=== PATIENT | male | born 1950 | race Caucasian/White ===

== ENCOUNTER 2020-05-10 08:47 | Outpatient (CLI) | payer MEDICARE, SELFPAY ==
--- NOTE | 2020-05-10 08:55 | USCV_ITS ---
Vimal Mendoza Age: 69 Gender: M : 1950 Exam Date: 05/10/2020 09:06 Ordering Phys: Beronica Newton NP Technologist: ANA HERNANDEZ [place]am Location[place] [facility] [place] Indication: AAA SCREEN HISTORY: Diameter (cm) AP x Transverse x Length Velocity (cm/s) Waveform Prox Aorta: 2.26 x 3.25 x 27.30 Biphasic Mid Aorta: 2.14 x 2.13 x 36.80 Biphasic Distal Aorta: 1.89 x 2.26 x 36.80 Triphasic Right Iliac Prox: 1.22 x 1.61 x 61.10 Triphasic Left Iliac Prox: 1.32 x 1.39 x 67.30 Triphasic Stent Prox Landing x x Aneurysmal Sac Max x x Lt Lat Sac Dim Rt Lat Sac Dim Stent Dist Landing x x Right Iliac Stent x x Left Iliac Stent x x Right Renal Art Left Renal Art FINDINGS: Comparison: none available. Limited by body habitus. Mild atherosclerosis with no aneurysm identified. CONCLUSIONS No evidence of abdominal aortic or bilateral iliac aneurysm. Dr. Alyson Painter DO (Electronically Signed) Final Date: 10 May 2020 13:47 S
== END 2020-05-10 08:48 | disposition home or self-care (01) ==
LOC: RAD 08:52
PROVIDERS: PCP Nurse Practitioner Family; Visit Provider Nurse Practitioner Family
DX: Z87.891 Personal history of nicotine dependence (principal); I71.4 Abdominal aortic aneurysm, without rupture
CPT/HCPCS: 76706

== ENCOUNTER 2021-05-08 09:37 | Outpatient (CLI) | payer MEDICARE, OTHER, SELFPAY ==
--- NOTE | 2021-05-08 09:48 | XR_ITS ---
WS: [id number] HIP WITH PELVIS RIGHT TECHNIQUE: 3 views of the right hip with pelvis CLINICAL INFORMATION: PAIN IN RIGHT HIP COMPARISON: None. FINDINGS: Prior postoperative changes right SABRINA. No evidence of hardware loosening. Acetabular screw fixation. No evidence of hardware loosening. Hardware appears in good position. XR/XR hip RT 2-3V wo/w pel* [id number] IMPRESSION: Satisfactory right SABRINA. No evidence of loosening. Tonnis classification: grade 0: normal radiographs
== END 2021-05-08 09:38 | disposition home or self-care (01) ==
PROVIDERS: PCP Nurse Practitioner Family; Visit Provider Nurse Practitioner Family
DX: M25.551 Pain in right hip (principal); Z96.641 Presence of right artificial hip joint
CPT/HCPCS: 73502

== ENCOUNTER 2021-06-29 12:05 | Outpatient (CLI) | payer MEDICARE, OTHER, SELFPAY ==
[2021-06-29 12:28] VITALS: BP 138/88; PULSE 79; RESP 24; TEMP 36.8; O2SAT 93
[2021-06-29 12:50] VITALS: BP 118/72; PULSE 76; RESP 20; TEMP 36.9; O2SAT 93
[2021-06-29 13:43] VITALS: BP 124/77; PULSE 74; RESP 24; TEMP 36.8; O2SAT 93
== END 2021-06-29 13:43 | disposition home or self-care (01) ==
LOC: OPS 12:12
PROVIDERS: PCP Nurse Practitioner Family; Visit Provider Nurse Practitioner Family
DX: U07.1 COVID-19 (principal)
CPT/HCPCS: 96365

== ENCOUNTER 2022-04-29 11:22 | Outpatient (CLI) | payer MEDICARE, OTHER, SELFPAY ==
--- NOTE | 2022-04-29 11:33 | CT_ITS ---
WS: [id number] LDCT LUNG CANCER SCREENING TECHNIQUE: Noncontrast CT of the chest with coronal and sagittal reformatted images. CLINICAL INFORMATION: HX OF TOBACCO USE COMPARISON: None. DLP: 51.42 mGy.cm DIvol: Mean CTDIvol: 1.58 (mGy) All CT scans at [facility] use at least one of these dose optimization techniques: automat ed exposure control; mA and/or kV adjustment per patient size (includes targeted exams where dose is matched to clinical indication); or iterative reconstruction. FINDINGS: Subsegmental atelectasis in the lung bases. No suspicious pulmonary parenchymal opacities. Normal jayne iber thoracic aorta. Aortic calcification. Normal GE junction. Adrenal glands are normal. No axillary lymphadenopathy. No mediastinal or hilar l ymphadenopathy. Mild thoracic kyphosis. Hypertrophic changes thoracic spine. Chronic healed bilateral rib fractures with callus formation. CT/CT lung screening [id number] IMPRESSION: LUNG-RADS: 1-Negative FOLLOW UP: 12 Month: Continue annual screening with LDCT
== END 2022-04-29 11:23 | disposition home or self-care (01) ==
LOC: RAD 11:25
PROVIDERS: PCP Nurse Practitioner Family; Visit Provider Nurse Practitioner Family
DX: Z12.2 Encounter for screening for malignant neoplasm of respiratory organs (principal); Z87.891 Personal history of nicotine dependence
CPT/HCPCS: 71271

== ENCOUNTER 2023-04-03 14:10 | Emergency (ER) | payer MEDICARE, SELFPAY ==
[2023-04-03 14:15] VITALS: BMI 42.5
[2023-04-03 14:18] VITALS: BP 116/75; RESP 18; O2SAT 93
--- NOTE | 2023-04-03 14:32 | XR_ITS ---
WS: [id number] Exam: XR ribs RT mn 3V w CXR1V [id number] Date/Time of Exam: 04/03/2023 2:32 PM Reason For Exam: Injury with right rib pain No acute right rib fracture or pneumothorax noted. Several old right rib fractures are noted. Chest x -ray shows a infiltrate in the left lower lobe that may represent pneumonia or chronic change. Normal heart size. The mediastinum is normal in contour for technique. Remaining bony structures are intact . XR/XR ribs RT mn 3V w CXR1V [id number] IMPRESSION: 1. No sign of right rib fracture or pneumothorax. 2. Several old right rib fractures. 3. Infiltrate in the left lower lobe that may represent chronic change or pneum onia.
--- NOTE | 2023-04-03 14:35 | W.ED.TRAUMA ---
HPI - Trauma General: Chief Complaint: Trauma Stated Complaint: rib pain, farming injury Time Seen by Provider: 04/03/23 14:25 History of Present Illness: Patient is a 72-year-old male who comes to the ED right rib pain after injury. Injury occurred just prior to arrival. 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 One of the round hay casey fell back and rolled down bulk loader. Patient states that he dove off to the side to miss the falling hay bale, but it hit back upper left side of patient's body. Denies any headache, loss of consciousness or vomiting after injury. Patient rates his pain currently a 7 out of 10 and it worsens with some movements of his torso and if he takes a deep breath. Denies any other injuries and is only complaining of right rib pain. Associated symptoms: Denies abdominal pain, back pain, chest pain, chills, fever(s), headache(s), nausea or vomiting Review of Systems Const: Denies: fever(s), chills or fatigue Eyes: Denies: change in vision or eye discomfort ENMT: Denies: throat pain, odynophagia, nasal discharge or nasal congestion Card: Denies: chest pain, palpitations, edema, swelling of feet/ankles, dyspnea on exertion or orthopnea Resp: Denies: dyspnea, productive cough or non-productive cough GI: Denies: abdominal pain, nausea, vomiting, diarrhea, constipation or hematochezia : Denies: flank pain, difficulty urinating, dysuria or hematuria Musc: Reports: other (Right rib pain); Denies: neck pain, back pain or extremity swelling Skin/Breast: Denies: rash or new lesions Neuro: Denies: headache(s), numbness in extremities or weakness in extremities PFS ED PFSH: Medical History Enlarged prostate Surgical History History of tonsillectomy History of total hip replacement Hx of shoulder surgery Social History Smoking and tobacco status: former smoker Alcohol intake: current Alcohol intake frequency: other Alcohol type: beer Physical Exam Const: COMMON NORMALS: patient oriented x3 HENMT: COMMON NORMALS: normocephalic HEAD & SCALP: normocephalic MOUTH: Normal oral and palatal mucosa present THROAT: posterior oropharynx normal and uvula midline Eye: COMMON NORMALS: Equal, round and reactive pupils present, EOMs intact bilaterally and conjunctivae normal CONJUNCTIVA: Yes conjunctivae normal PUPIL: Yes Equal, round and reactive pupils present Neck/C-Spine: COMMON NORMALS: supple GENERAL: Yes normal visual inspection Chest: CHEST: Yes tenderness rib right anterior-axillary line involving the 7th rib, involving the 8th rib and involving the 9th rib Resp: COMMON NORMALS: normal respiratory effort, No retractions, No use of accessory muscles and clear to auscultation bilaterally AUSCULTATION: clear to auscultation bilaterally Cardio: COMMON NORMALS: regular rate, regular rhythm, S1 normal heart sound present, S2 normal heart sound present, No gallops present (Cardio), No clicks present (Cardio), No murmurs present (Cardio) and Peripheral pulses 2+ throughout RATE: regular rate RHYTHM: regular rhythm HEART SOUNDS: S1 normal heart sound present and S2 normal heart sound present PERIPHERAL PULSES: Peripheral pulses 2+ throughout GI: COMMON NORMALS: Normal to inspection, nondistended, normoactive bowel sounds present, Soft to palpation, non-tender and no masses PALPATION: Yes Soft to palpation : COMMON NORMALS: Yes no CVA tenderness BLADDER/KIDNEY EXAM: Yes no CVA tenderness Back/Pelvis: COMMON NORMALS: no CVA tenderness Extremity: COMMON NORMALS: normal to inspection Neuro: COMMON NORMALS: patient oriented x3, CN's II-XII intact bilaterally, moves all extremities, no focal motor deficits, no sensory deficits noted and gait normal COORDINATION/BALANCE: [id number] test normal SPEECH: speech normal GAIT: Yes Normal gait present COORDINATION: [id number] test normal Skin: GENERAL SKIN EXAM: dry skin Course Vital Signs: Vital signs: Vital Signs Respiratory Rate 18 04/03/23 14:18 Blood Pressure 116/75 04/03/23 14:18 Pulse Oximetry 93 04/03/23 14:18 Oxygen Delivery Me thod Room Air 04/03/23 14:18 MDM - Trauma Medical Decision Making Patient is a 72-year-old male who comes to the ED right rib pain after injury. Injury occurred just prior to arrival. 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 One of the round hay casey fell back and rolled down bulk loader. Patient states that he dove off to the side to miss the falling hay bale, but it hit back upper left side of patient's body. Denies any headache, loss of consciousness or vomiting after injury. Patient rates his pain currently a 7 out of 10 and it worsens with some movements of his torso and if he takes a deep breath. Denies any other injuries and is only complaining of right rib pain. Vitals are stable. Neuro exam shows no deficits. Patient has some right anterior axillary rib tenderness involving ribs 7 through 9. Rest of exam is benign. Right rib x-ray shows no acute fractures or findings. Patient was stable for discharge home and diagnosed with rib pain on the right side. He was discharged home with a prescription for muscle relaxer, ibuprofen 800 mg and a couple hydrocodone to help with acute pain. Follow-up with PCP within the next week for reevaluation. Return to ED precautions given. Patient understood and agreed with plan. Lab Data Radiology Impressions Ribs X-Ray 04/03/23 14:32 IMPRESSION: 1. No sign of right rib fracture or pneumothorax. 2. Several old right rib fractures. 3. Infiltrate in the left lower lobe that may represent chronic change or pneumonia. Discharge Plan Discharge Patient Disposition: Home Clinical Impression: Rib pain on right side Condition: Stable Prescriptions: New methocarbamol 750 mg tablet 750 mg PO Q8H PRN (Reason: Muscle spasms and pain) Qty: 20 0RF No Action tamsulosin [Flomax] 0.4 mg capsule 0.4 mg PO DAILY imiquimod 5 % cream in packet 1 applic topical .qhs Qty: 24 2RF Rx Instructions: Start on 01-01-23. Apply thin film qhs M-F (off weekends) for 4 weeks to area on cheek ketoconazole 2 % shampoo 1 applic topical .2 x weekly Qty: 120 3RF Rx Instructions: Lather into scalp 2 times weekly. Allow to sit on scalp for 5 minutes before rinsing. ketoconazole 2 % cream 1 applic topical BID Qty: 30 2RF Rx Instructions: To pink scaly areas on face as needed cholecalciferol (vitamin D3) 125 mcg (5,000 unit) capsule 125 mcg PO DAILY vitamin B complex [B Complex-Vitamin B12] Tablet 1 tab PO DAILY Discharge Orders: Discharge ED (Routine); Ordered 04/03/23 Ordered By: Sohan Chamorro Referrals: Beronica Newton NP [Primary Care Provider] - Discharge Diet: Regular Discharge Activity: Limit activity as instructed Patient Instructions: Opioid Safety Activity Restrictions/Additional Instructions: Follow-up with medical provider as directed in the next 5 to 7 days for reevaluation. Rest and limit activity and lifting to under 10 pounds for the next week then slowly advance activity as tolerated. Ply cold pack on sore area of ribs to help with symptoms. Take medications as prescribed. Return to the ER or your medical provider if condition worsens. Please read and understand discharge instructions. Thank you for choosing [facility] for your healthcare needs today. Please realize this is an emergency room and that we are providing you with a medical screening exam and this may not be complete and all inclusive of all the testing and or work up that you may need to determine your ailment or severity of your illness. It is very important that you follow up as instructed or that you return to the Emergency Department should you have concerns or if your condition changes or worsens in any way. Coding Level of Care Code ED High Frequency Mill Operator for Susan Alvarenga
[2023-04-03] MEDS: HYDROcodone-acetaminophen 7.5-325 mg Tablet 1 TAB PO (15:22)
== END 2023-04-03 15:30 | disposition home or self-care (01) ==
PROVIDERS: Emergency Provider Physician Assistant; PCP Nurse Practitioner Family
DX: R07.81 Pleurodynia (principal); Z87.891 Personal history of nicotine dependence
CPT/HCPCS: 71101; 99283

== ENCOUNTER → 2023-04-10 13:03 | Outpatient (BNVA) | payer MEDICARE, SELFPAY | PROVIDERS: PCP Nurse Practitioner Family; Visit Provider Nurse Practitioner Family | DX: L57.0 Actinic keratosis (principal); L81.4 Other melanin hyperpigmentation; D22.5 Melanocytic nevi of trunk; L85.3 Xerosis cutis; Z71.89 Other specified counseling; L57.8 Other skin changes due to chronic exposure to nonionizing radiation; S50.811A Abrasion of right forearm, initial encounter; X58.XXXA Exposure to other specified factors, initial encounter; Z85.820 Personal history of malignant melanoma of skin; Z85.828 Personal history of other malignant neoplasm of skin; Z87.891 Personal history of nicotine dependence | CPT/HCPCS: 17000; 17003; 99213 ==

== ENCOUNTER → 2023-10-15 09:02 | Outpatient (BNVA) | payer MEDICARE, SELFPAY | PROVIDERS: PCP Nurse Practitioner Family; Visit Provider Nurse Practitioner Family | DX: L57.0 Actinic keratosis (principal); L81.4 Other melanin hyperpigmentation; D22.5 Melanocytic nevi of trunk; L57.8 Other skin changes due to chronic exposure to nonionizing radiation; Z85.820 Personal history of malignant melanoma of skin; Z85.828 Personal history of other malignant neoplasm of skin; S50.811A Abrasion of right forearm, initial encounter; X58.XXXA Exposure to other specified factors, initial encounter | CPT/HCPCS: 17000; 99213 ==

== ENCOUNTER 2025-04-15 14:42 | Emergency (ER) | payer MEDICARE, SELFPAY ==
[2025-04-15 14:45] VITALS: BP 145/80; PULSE 92; RESP 16; TEMP 36.4; O2SAT 94; BMI 41.3
--- NOTE | 2025-04-15 14:52 | W.ED.BACK ---
HPI - Back Pain/Injury General: Chief Complaint: Back Pain/Injury Stated Complaint: abd pain Time Seen by Provider: 04/15/25 14:50 History of Present Illness: 74-year-old male presents to the emergency room with complaints of left flank pain. Patient has had kidney stones in the past complaining of pain in his back it is moved migrated lower now is having difficulty with urination he is also noticed hematuria the last couple of days. He is on Flomax. He has had difficulty in the past with passing large stones that actually required him to have a Mendoza catheter because the stone is obstructing the bladder outlet. He denies any fever sweats chills no chest pain or shortness of breath Associated symptoms: Deny abdominal pain, chills, dysuria, fever(s) or urinary urgency Related Data Home Medications ?Medication ?Instructions ?Recorded ?Confirmed tamsulosin 0.4 mg capsule (Flomax) 0.4 mg PO QPM 02/12/21 04/15/25 cholecalciferol (vitamin D3) 125 125 mcg PO DAILY 04/09/22 04/15/25 mcg (5,000 unit) capsule vitamin B complex 1 tab PO QPM 04/15/25 04/15/25 Previous Rx's ?Medication ?Instructions ?Recorded ketoconazole 2 % shampoo 1 applic topical .2 x weekly #120 11/18/22 mL ciprofloxacin HCl 500 mg tablet 500 mg PO BID #20 tabs 04/15/25 (Cipro) tamsulosin 0.4 mg capsule (Flomax) 0.4 mg PO BID #60 caps 04/15/25 Allergies Allergy/AdvReac Type Severity Reaction Status Date / Time No Known Allergies Allergy Verified 04/15/25 14:48 Review of Systems Const: Denies: fever(s) or chills Card: Denies: chest pain Resp: Denies: dyspnea GI: Denies: abdominal pain : Reports: flank pain (Left); Denies: dysuria, urinary frequency or urinary urgency Musc: Denies: neck pain or back pain Skin/Breast: Denies: rash PFSH ED PFSH: Medical History Enlarged prostate Surgical History History of total hip replacement Hx of shoulder surgery History of tonsillectomy Social History Smoking and tobacco/nicotine status: former use of tobacco/nicotine Alcohol intake: current Alcohol intake frequency: other Alcohol type: beer Physical Exam Const: COMMON NORMALS: no acute distress GENERAL APPEARANCE: cooperative and comfortable ORIENTATION/CONSCIOUSNESS: Yes awake, Yes oriented to person, Yes oriented to place and Yes oriented to time HENMT: COMMON NORMALS: normocephalic, atraumatic and hearing grossly normal bilaterally HEAD & SCALP: normocephalic and atraumatic Resp: COMMON NORMALS: normal respiratory effort, No retractions, No use of accessory muscles and clear to auscultation bilaterally AUSCULTATION: clear to auscultation bilaterally Cardio: COMMON NORMALS: regular rate, regular rhythm and No murmurs present (Cardio) RATE: regular rate RHYTHM: regular rhythm GI: COMMON NORMALS: Soft to palpation and No hepatosplenomegaly present AUSCULTATION: Yes normoactive bowel sounds PALPATION: Yes Soft to palpation, No Tenderness to palpation present (GI), No Guarding due to palpation present (GI) and Yes No hepatosplenomegaly present Extremity: COMMON NORMALS: normal to inspection, capillary refill normal, no clubbing, cyanosis or edema, no calf tenderness and no pedal edema Neuro: SENSORIUM/ORIENTATION: Yes oriented to person, Yes oriented to place and Yes oriented to time Skin: COMMON NORMALS: no rashes or lesions noted GENERAL SKIN EXAM: no rashes or lesions noted Course Vital Signs: Vital signs: Vital Signs Temperature 97.5 F L 04/15/25 14:45 Pulse Rate 92 04/15/25 14:45 Respiratory Rate 16 04/15/25 14:45 Blood Pressure 145/80 04/15/25 14:45 Pulse Oximetry 94 04/15/25 14:45 Oxygen Delivery Me thod Room Air 04/15/25 14:45 MDM - Back Pain/Injury Medical Decision Making Patient has hematuria but is not having any further pain there is no sign of having a current renal stone or recently passed stone. No leukocytosis. He is able to empty his bladder completely bladder scan postvoid was about 63 mL. Will increase his tamsulosin to 0.4 twice daily add ciprofloxacin 500 twice daily urine culture being done refer to urology for further evaluation. After patient left CPK came back. Was elevated. Will still have the patient do the antibiotics home but concerned about the flank pain he had reminiscent of the kidney stones. He should have a repeat lab work done early next week by his primary care provider including CPK and kidney function. Staff called and contacted the patient. Medical Records I reviewed the patient's medical records. Labs I reviewed the patient's lab results. 04/15/25 15:05 04/15/25 15:05 Radiology Impressions Abdomen/Pelvis CT 04/15/25 14:58 IMPRESSION: 1. No acute findings. 2. Enlarged prostate which impresses upon the urinary bladder. Calcification versus radiopaque foreign bodies/postsurgical change along the anterior aspect of the left prostate. Please correlate clinically. 3. Bilateral L5 pars defects. Laboratory Results WBC 7.72 10^3/uL (3.29-11.43) 04/15/25 15:05 RBC 4.83 10^6/uL (3.85-5.65) 04/15/25 15:05 Hgb 14.80 g/dL (11.27-16.99) 04/15/25 15:05 Hct 44.5 % (37-53) 04/15/25 15:05 MCV 92.1 fl (82-101) 04/15/25 15:05 MCH 30.6 pg (27-33) 04/15/25 15:05 MCHC 33.3 g/dL (30-55) 04/15/25 15:05 RDW 12.4 % (12.1-15.1) 04/15/25 15:05 Plt Count 177 10^3/cmm (157-399) 04/15/25 15:05 MPV 9.3 fL (7.4-10.4) 04/15/25 15:05 Neut % (Auto) 66.2 % 04/15/25 15:05 Lymph % (Auto) 22.8 % 04/15/25 15:05 Stokes % (Auto) 8.5 % 04/15/25 15:05 Eos % (Auto) 1.6 % 04/15/25 15:05 Baso % (Auto) 0.6 % 04/15/25 15:05 Neut # (Auto) 5.11 10^3/uL (1.8-7.7) 04/15/25 15:05 Lymph # (Auto) 1.8 10^3/uL (0.8-4.8) 04/15/25 15:05 Stokes # (Auto) 0.7 10^3/uL (0.2-0.9) 04/15/25 15:05 Eos # (Auto) 0.1 10^3/uL (0.0-0.8) 04/15/25 15:05 Baso # (Auto) 0.1 10^3/uL (0.0-0.1) 04/15/25 15:05 Nucleated RBC % (auto) 0 % 04/15/25 15:05 Nucleated RBCs # 0.0 /100WBC 04/15/25 15:05 Sodium 139 mmol/L (136-145) 04/15/25 15:05 Potassium 3.7 mmol/L (3.5-5.1) 04/15/25 15:05 Chloride 105 mmol/L (98-107) 04/15/25 15:05 Carbon Dioxide 22 mmol/L (22-29) 04/15/25 15:05 Anion Gap 15.7 (5-19) 04/15/25 15:05 BUN 14 mg/dL (8-23) 04/15/25 15:05 Creatinine 0.8 mg/dL (0.7-1.2) 04/15/25 15:05 GFR Calculation Not Reportable 04/15/25 15:05 Glucose 117 mg/dL (65-115) H 04/15/25 15:05 Calculated Osmolality 290 mOsm/kg (285-295) 04/15/25 15:05 Calcium 9.1 mg/dL (8.5-10.5) 04/15/25 15:05 Total Bilirubin 0.8 mg/dL (0.15-1.2) 04/15/25 15:05 AST 32 U/L (0-40) 04/15/25 15:05 ALT 22 U/L (0-41) 04/15/25 15:05 Alkaline Phosphatase 85 U/L (40-130) 04/15/25 15:05 Creatine Kinase 874 U/L (39-308) H* 04/15/25 15:05 Total Protein 6.7 g/dL (6.6-8.7) 04/15/25 15:05 Albumin 4.0 g/dL (3.5-5.2) 04/15/25 15:05 Globulin 2.7 g/dL (1.3-4.6) 04/15/25 15:05 Lipase 34 U/L (13-60) 04/15/25 15:05 Urine Color Other (Yellow) A 04/15/25 15:00 Urine Appearance Turbid (CLEAR) A 04/15/25 15:00 Urine pH TNP 04/15/25 15:00 Ur Specific [place] Not Reportable 04/15/25 15:00 Urine Protein Not Reportable 04/15/25 15:00 Urine Glucose (UA) Not Reportable 04/15/25 15:00 Urine Ketones Not Reportable 04/15/25 15:00 Urine Blood Not Reportable 04/15/25 15:00 Urine Nitrate Not Reportable 04/15/25 15:00 Urine Bilirubin Not Reportable 04/15/25 15:00 Urine Urobilinogen Not Reportable 04/15/25 15:00 Ur Leukocyte Esterase Not Reportable 04/15/25 15:00 Urine RBC >100 /hpf (0-2) H 04/15/25 15:00 Urine WBC 25-40 /hpf (0-5) H 04/15/25 15:00 Ur Squamous Epith Cells 0-4 /hpf (0-5) H 04/15/25 15:00 Amorphous Sediment Not Reportable 04/15/25 15:00 Urine Bacteria 1+ /hpf (NONE) H 04/15/25 15:00 Hyaline Casts 5-10 /lpf H 04/15/25 15:00 Coarse Granular Casts 0-4 /lpf H 04/15/25 15:00 Urine Mucus 1+ /hpf 04/15/25 15:00 Urine Yeast Trace /hpf 04/15/25 15:00 All radiology interpretation(s) finalized by discharge Discharge Plan Discharge Patient Disposition: Home Clinical Impression: Hematuria Condition: Stable Prescriptions: New ciprofloxacin HCl [Cipro] 500 mg tablet 500 mg PO BID Qty: 20 0RF tamsulosin [Flomax] 0.4 mg capsule 0.4 mg PO BID Qty: 60 0RF No Action tamsulosin [Flomax] 0.4 mg capsule 0.4 mg PO QPM ketoconazole 2 % shampoo 1 applic topical .2 x weekly Qty: 120 3RF Rx Instructions: Lather into scalp 2 times weekly. Allow to sit on scalp for 5 minutes before rinsing. cholecalciferol (vitamin D3) 125 mcg (5,000 unit) capsule 125 mcg PO DAILY vitamin B complex Tablet 1 tab PO QPM Discharge Orders: Discharge ED (Routine); Ordered 04/15/25 Ordered By: Emigdio Zuñiga Referrals: Beronica Newton NP [Referring, Unknown] Discharge Diet: Usual diet Discharge Activity: Resume usual activity Patient Instructions: Opioid Safety, Pain Management Activity Restrictions/Additional Instructions: Thank you for choosing [facility] for your healthcare needs today. It is very important that you follow up as instructed or that you return to the Emergency Department should you have concerns or if your condition changes or worsens in any way. You are seen in the emergency room with blood in your urine. CT of your kidneys ureters and bladder did not show any kidney stones or evidence of recently passed kidney stones. There is a large amount of blood in your urine but no definitive signs of infection your white count and hemoglobin are normal. Will discharge you home recommend you increase your tamsulosin to 1 pill twice a day. Increase fluid intake to maintain regular urine output. If you have difficult time into your bladder you will need to return to the emergency room to be reevaluated if an obstruction develops from blood clots you may need to have a Mendoza placed. You should follow-up with your urologist as soon as you are able to further evaluate the cause of the blood in your urine. Print Language: Serbian Coding Level of Care Code ED Highway Maintenance Technician for Susan Alvarenga
--- NOTE | 2025-04-15 14:58 | CTR_ITS ---
PROCEDURE INFORMATION: Exam: CT Abdomen And Pelvis Without Contrast Exam date and time: 04/15/2025 3:44 PM Age: 74 years old Clinical indication: Abdominal pain; Flank; Left; Prior surgery; Surgery date: 6+ months; Surgery type: Mejia hips; HX of renal calc, ; additional info: Flank pain TECHNIQUE: Imaging protocol: Computed tomography of the abdomen and pelvis without contrast. Radiation optimization: All CT scans at this facility use at least one of these dose optimization techniques: automated exposure control; mA and/or kV adjustment per patient size (includes targeted exams where dose is matched to clinical indication); or iterative reconstruction. COMPARISON: CR XR hip RT 2-3V wo/w pel* [id number] 05/08/2021 9:52 AM RADIATION DOSE METRICS: Total DLP (mGy-cm): 1212.53 FINDINGS: Liver: Right hepatic cyst inferiorly measures 4 cm. A few punctate hypodensities in the liver are too small to characterize. Gallbladder and biliary ducts: Normal. No calcified stones. No ductal dilation. Pancreas: Normal. No ductal dilation. Spleen: Normal. No splenomegaly. Adrenal glands: Normal. No mass. Kidneys and ureters: There may be slight scarring along the lateral aspect of the left kidney. No urinary calculi or hydronephrosis. Stomach and bowel: Unremarkable. No obstruction. No mucosal thickening. Appendix: No evidence of appendicitis. Intraperitoneal space: Unremarkable. No free air. No significant fluid collection. Vasculature: Unremarkable. No abdominal aortic aneurysm. Lymph nodes: Unremarkable. No enlarged lymph nodes. Urinary bladder: See Reproductive finding. Reproductive: The prostate is enlarged. It impresses on the posterior aspect of the urinary bladder. Calcification versus radiopaque foreign body noted along the anterior aspect of the left prostate measuring 1.5 x 1.3 cm, which appears to slightly protrude or impress upon the bladder lumen posteriorly. Please correlate clinically. Bones/joints: Bilateral L5 pars defects with minimal anterolisthesis of L5 on S1. 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 Bilateral hip prostheses. Soft tissues: Unremarkable. CT/CT kidney stone [id number] IMPRESSION: 1. No acute findings. 2. Enlarged prostate which impresses upon the urinary bladder. Calcification versus radiopaque foreign bodies/postsurgical change along the anterior aspect of the left prostate. Please correlate clinically. 3. Bilateral L5 pars defects.
[2025-04-15 15:05] LABS: Add Urine Microscopic? NO
[2025-04-15 15:09] LABS: Basophils # 0.1 10^3/uL (0.0-0.1); Basophils % 0.6 %; Eosinophils # 0.1 10^3/uL (0.0-0.8); Eosinophils % 1.6 %; Hematocrit 44.5 % (37-53); Lymphocytes # 1.8 10^3/uL (0.8-4.8); Lymphocytes % 22.8 %; Mean Corpuscular HGB Conc 33.3 g/dL (30-55); Mean Corpuscular Hemoglobin 30.6 pg (27-33); Mean Corpuscular Volume 92.1 fl (82-101); Mean Platelet Volume 9.3 fL (7.4-10.4); Monocytes # 0.7 10^3/uL (0.2-0.9); Monocytes % 8.5 %; Neutrophils # 5.11 10^3/uL (1.8-7.7); Neutrophils % 66.2 %; Nucleated Red Blood Cells % 0 %; Platelet Count 177 10^3/cmm (157-399); Red Blood Count 4.83 10^6/uL (3.85-5.65); Red Cell Distribution Width 12.4 % (12.1-15.1); White Blood Count 7.72 10^3/uL (3.29-11.43)
[2025-04-15 15:20] LABS: RBC Urine >100 /hpf (0-2); UA Manual Slide Review YES; Urine Appearance Turbid (CLEAR); Urine Color Other (Yellow)
[2025-04-15 15:21] LABS: Add Urine Culture? Yes; Bacteria Urine 1+ /hpf; Coarse Granular Casts Urine 0-4 /lpf; Mucus Urine 1+ /hpf; Squamous Epithelial Cell Urine 0-4 /hpf (0-5); WBC Urine 25-40 /hpf (0-5)
[2025-04-15 15:22] LABS: Charge for UA Resulting for Rev
[2025-04-15 15:25] LABS: Alanine Aminotransferase 22 U/L (0-41); Alkaline Phosphatase 85 U/L (40-130); Anion Gap 15.7 (5-19); Aspartate Amino Transferase 32 U/L (0-40); Blood Urea Nitrogen 14 mg/dL (8-23); Calcium 9.1 mg/dL (8.5-10.5); Carbon Dioxide 22 mmol/L (22-29); Chloride 105 mmol/L (98-107); Creatinine Clr Calc Pharmacy 110.0542; Globulin 2.7 g/dL (1.3-4.6); Glucose 117 mg/dL (65-115); Lipase 34 U/L (13-60); Osmolality Calculated 290 mOsm/kg (285-295); Potassium 3.7 mmol/L (3.5-5.1); Sodium 139 mmol/L (136-145); Total Bilirubin 0.8 mg/dL (0.15-1.2); Total Protein 6.7 g/dL (6.6-8.7)
[2025-04-15 17:03] LABS: Creatine Phosphokinase 874 U/L (39-308)
--- NOTE | 2025-04-15 17:56 | PC.NURSE ---
this nurse called pt to inform him of his CK level per Dr. Zuñiga. pt educated to follow up with pcp for a recheck on Friday. pt verbalized understanding.
== END 2025-04-15 16:49 | disposition home or self-care (01) ==
PROVIDERS: Emergency Provider Family Medicine; PCP Family Medicine
DX: R31.9 Hematuria, unspecified (principal); Z87.891 Personal history of nicotine dependence; R10.9 Unspecified abdominal pain
CPT/HCPCS: 51798; 74176; 80053; 81003; 82550; 83690; 85025; 87086; 99284